=== PATIENT | female | born 1970 ===

== ENCOUNTER 2022-07-20 18:41 | Emergency (ER) | payer OTHER ==
[~2022-07-20] VITALS: Ht 157.5 cm; Wt 68.0 kg
[~2022-07-20 18:41] MED LIST: LISINOPRIL10 MG
[2022-07-20] MEDS ORDERED: SYNTHROID50 MCG (18:56)
== END 2022-07-20 22:48 | disposition home or self-care (01) ==
LOC: ER 18:41
DX: N39.0 Urinary tract infection, site not specified (principal); M54.9 Dorsalgia, unspecified